=== PATIENT | female | born 1935 | race Caucasian/White ===

== ENCOUNTER 2017-04-01 12:55 | Emergency (ER) | payer MEDICARE, BC | END 2017-04-01 16:26 | disposition home or self-care (01) | LOC: ER 12:55 | DX: S80.01XA Contusion of right knee, initial encounter (principal); M25.551 Pain in right hip; N39.0 Urinary tract infection, site not specified; J44.9 Chronic obstructive pulmonary disease, unspecified; I48.91 Unspecified atrial fibrillation; I10 Essential (primary) hypertension; Z79.899 Other long term (current) drug therapy; Z88.0 Allergy status to penicillin; Z88.5 Allergy status to narcotic agent; W19.XXXA Unspecified fall, initial encounter; Y92.009 Unspecified place in unspecified non-institutional (private) residence as the place of occurrence of the external cause | CPT/HCPCS: 51701; 73502-RT; 96372; J0696 ==